=== PATIENT | male | born 2000 | race Caucasian/White ===

== ENCOUNTER 2022-05-23 14:06 | Outpatient (CLI) | payer BC, SELFPAY ==
[2022-05-23 21:34] LABS: Albumin* 5.3 g/dL (3.3-5.0); Chloride* 101 mmol/L (96-114); Sodium* 141 mmol/L (135-149)
[2022-05-23 21:35] LABS: Potassium* 4.4 mmol/L (3.6-5.1)
[2022-05-23 21:37] LABS: Alkaline Phosphatase* 65 U/L (40-150); Aspartate Amino Transferase* 39 U/L (12-35); Bilirubin Total* 0.7 mg/dL (0.1-1.5); Blood Urea Nitrogen* 17 mg/dL (5-24); Carbon Dioxide* 30 mmol/L (20-32); Creatinine* 0.9 mg/dL (0.5-1.5); Estimated Glomerular Filt Rate 125 ml/min; Glucose* 78 mg/dL (60-115); Total Protein* 7.8 g/dL (6.0-8.3)
[2022-05-23 21:38] LABS: Alanine Aminotransferase* 61 U/L (4-50); Calcium* 10.3 mg/dL (8.4-10.6)
[2022-05-23 21:55] LABS: Vitamin D 25 Hydroxy* 18 ng/mL (30-80)
[2022-05-29 11:04] LABS: Lab Miscellaneous Test SC
== END 2022-05-23 14:07 | disposition home or self-care (01) ==
PROVIDERS: PCP Family Medicine; Visit Provider Family Medicine
DX: R63.4 Abnormal weight loss (principal); E83.52 Hypercalcemia
CPT/HCPCS: 80053; 82306; 82310; 82330; 83970; 84443

== ENCOUNTER 2022-06-06 15:20 | Outpatient (CLI) | payer BC, SELFPAY ==
[2022-06-09 00:55] LABS: Vitamin D, 1,25-Dihydroxy 39.7 pg/mL (19.9-79.3)
== END 2022-06-06 15:21 | disposition home or self-care (01) ==
LOC: NFLDREF 15:20
PROVIDERS: PCP Family Medicine; Visit Provider Family Medicine
DX: E83.52 Hypercalcemia (principal)
CPT/HCPCS: 82397; 82652

== ENCOUNTER 2022-06-26 14:37 | Outpatient (CLI) | payer BC, SELFPAY ==
[2022-06-29 21:13] LABS: Albumin 4.66 g/dL (3.75-5.01); Alpha 1 Globulin 0.28 g/dL (0.19-0.46); Alpha 2 Globulin 0.68 g/dL (0.48-1.05)
== END 2022-06-26 14:38 | disposition home or self-care (01) ==
LOC: NFLDREF 14:37
PROVIDERS: PCP Family Medicine; Visit Provider Family Medicine
DX: E83.52 Hypercalcemia (principal)
CPT/HCPCS: 83520; 84156; 84165; 86335

== ENCOUNTER 2024-01-02 08:38 | Outpatient (CLI) | payer BC, SELFPAY | END 2024-01-02 08:39 | disposition home or self-care (01) | LOC: NFLDREF 14:59 | PROVIDERS: PCP Family Medicine; Referring Provider Family Medicine; Visit Provider Family Medicine | DX: E55.9 Vitamin D deficiency, unspecified (principal); Z13.6 Encounter for screening for cardiovascular disorders | CPT/HCPCS: 80061; 82306 ==

== ENCOUNTER 2025-04-20 15:04 | Outpatient (CLI) | payer BC, SELFPAY | END 2025-04-20 15:05 | disposition home or self-care (01) | PROVIDERS: PCP Family Medicine; Visit Provider Family Medicine | DX: L81.9 Disorder of pigmentation, unspecified (principal) | CPT/HCPCS: 80053; 82550; 86038 ==